=== PATIENT | male | born 1970 | race Caucasian/White ===

== ENCOUNTER 2019-09-16 01:00 | Day surgery (SDC) | payer OTHER, SELFPAY ==
[2019-09-14 13:16] VITALS: BMI 26.1
--- NOTE | 2019-09-16 07:51 | PM.HPGS ---
History of Present Illness History of Present Illness Consent: Risks, benefits, and alternatives have been discussed and questions answered. Patient agrees to proceed with procedure. Chief complaint: Neoplasm Screening, Hx of Polyps Narrative: Camacho Hale is a 49 year old male with a history of adenomatous polyps [facility] Past Medical History Medical History Dupuytrens contracture Gout Hypercholesterolemia Social History Social History Gender identity (if verbalized by the patient): Male Meds Home Medications and Allergies Home Medications Medication Instructions Recorded Confirmed Type atorvastatin 20 mg PO DAILY 08/04/19 09/14/19 History allopurinol 300 mg PO DAILY 09/14/19 09/14/19 History Allergies Allergy/AdvReac Type Severity Reaction Status Date / Time No Known Allergies Allergy Mild Verified 09/14/19 13:14 Exam Resp: Auscultation: clear to auscultation bilaterally Cardio: Rate: regular rate Rhythm: regular rhythm GI: GI Palp: Yes Soft to palpation and No Tenderness to palpation present (GI) Assessment and Plan Assessment and plan (1) Personal history of colonic polyps: Code(s): Z86.010 - Personal history of colonic polyps Status: Acute Assessment and Plan: Colonoscopy with possible biopsy or polypectomy or cautery or injection of substances.
[2019-09-16 08:00] VITALS: BP 121/88; PULSE 89; RESP 16; TEMP 36.2; O2SAT 98
--- NOTE | 2019-09-16 08:01 | WPDANESEPPF ---
Anes - Initial Pre Proc Eval Procedure: Operation Date: 09/16/19 09:00 Proposed Procedures p Screening Colonoscopy - Donis Posadas MD Date/Time: 09/16/19 08:01 Surgeon: Donis Posadas MD Pre Op Diagnosis: Neoplasm Screening, Hx of Polyps Patient Data Age: 49 Gender: M Height: 5 ft 11 in Weight: 85 kg Allergies Allergy/AdvReac Type Severity Reaction Status Date / Time No Known Allergies Allergy Mild Verified 09/16/19 07:57 Home Medications Medication Instructions Recorded Confirmed Type atorvastatin 20 mg PO DAILY 08/04/19 09/14/19 History allopurinol 300 mg PO DAILY 09/14/19 09/14/19 History Patient hx anesthesia problems: none Family hx anesthesia problems: none [facility] Past Medical History Medical History Dupuytrens contracture Gout Hypercholesterolemia Social History Social History (Updated 09/16/19 @ 08:02 by Paul Schreiber MD) Smoking status: Never smoker Alcohol intake: current Gender identity (if verbalized by the patient): Male Anes - Eval Final PreProcedure Day of Procedure 09/16/19 08:01 Patient weight: overweight Heart: regular rate and rhythm Lungs: clear to auscultation Airway: Mallampati scale class II Neurological: alert and oriented Last oral intake: >/= 8 hours ASA classification: II Emergent: no Anesthetic plan: proceed Anesthesia type and monitoring: general GIVS and standard monitoring Informed Consent: The patient's anesthetic plan and its attendant risks and benefits were discussed with the patient/family/POA. Questions were solicited and answers provided to the satisfaction of the patient/family/POA.
[2019-09-16] MEDS: LACTATED RINGERS 1,000 ML 150 ML IV CONT (08:10)
[2019-09-16] MEDS: SIMETHICONE ORAL SUSPENSION 20 MG/0.3 ML 30 ML BOTTLE 0.6 ML IRRIGATION (08:53)
[2019-09-16 08:58] VITALS: BP 116/62; PULSE 78; RESP 19; O2SAT 99
[2019-09-16 09:08] VITALS: BP 99/66; PULSE 74; RESP 16; O2SAT 95
[2019-09-16 09:18] VITALS: BP 109/75; PULSE 64; RESP 15; O2SAT 96
== END 2019-09-16 09:35 | disposition home or self-care (01) ==
PROVIDERS: PCP Internal Medicine; Visit Provider Internal Medicine Gastroenterology
PROC: 0DJD8ZZ Inspection of Lower Intestinal Tract, Via Natural or Artificial Opening Endoscopic (ICD-10-PCS; CPT 45378; principal; 2019-09-16 09:00)
DX: Z12.11 Encounter for screening for malignant neoplasm of colon (principal); K57.30 Diverticulosis of large intestine without perforation or abscess without bleeding; Z86.010 Personal history of colon polyps; E78.00 Pure hypercholesterolemia, unspecified; M10.9 Gout, unspecified
CPT/HCPCS: 45378; J2704; J7120

== ENCOUNTER 2020-03-08 00:35 | Outpatient (CLI) | payer OTHER, SELFPAY ==
[2020-03-08 18:35] LABS: SARS-CoV-2 RNA PCR Negative
== END 2020-03-08 00:36 | disposition home or self-care (01) ==
LOC: ANHCOVIDDT 00:36
PROVIDERS: PCP Internal Medicine; Visit Provider Plastic Surgery
DX: Z01.812 Encounter for preprocedural laboratory examination (principal); Z11.59 Encounter for screening for other viral diseases
CPT/HCPCS: 87635; C9803; U0003

== ENCOUNTER 2020-03-10 01:05 | Day surgery (SDC) | payer OTHER, SELFPAY ==
[2020-02-22 15:08] VITALS: BMI 26.5
--- NOTE | 2020-03-09 18:07 | PM.IMHP ---
H&P: HPI History of Present Illness Date/Time: 03/09/20 18:07 Chief complaint: Dupuytren's Disease Left Thumb & Little Finger Narrative: Camacho Hale is a 49 year old male operated In July of this year for Dupuytren's contracture. He was pleased with the result and has come for surgery on the opposite hand where he has disease involving the thumb and little finger. the possible complications of the this sort of surgery have been reviewed with him again. Most notably they involved nerve injury recurrence wound infection delayed healing and lack of complete correction of the disease deformity. Review of Systems Review of Systems: All systems reviewed & are unremarkable except as noted in HPI and below Constitutional: Constitutional: Reports no additional constitutional complaints Eyes: Eyes: Reports no additional eye complaints ENT: Reports system reviewed and no additional complaints, except as documented Cardiovascular: Cardiovascular: Reports no additional cardiovascular complaints Respiratory: Respiratory: Reports no additional respiratory complaints Gastrointestinal: Gastrointestinal: Reports no additional gastrointestinal complaints Genitourinary: Genitourinary: Reports no additional male genitourinary complaints Musculoskeletal: Musculoskeletal: Reports no additional musculoskeletal complaints Integumentary/Breasts: Skin/Breast: Reports system reviewed and no additional complaints, except as docu Neurologic: Reports system reviewed and no additional complaints, except as documented Psychiatric: Psychiatric: Reports no additional psychiatric complaints PMF[facility] Past Medical History Medical History Dupuytrens contracture Gout Hypercholesterolemia Social History Social History (Updated 09/16/19 @ 08:02 by Paul Schreiber MD) Smoking status: Never smoker Alcohol intake: current Drinks per week: 9 Substance use: never Gender identity (if verbalized by the patient): Male Spiritual care concerns: No Meds Home Medications and Allergies Home Medications Medication Instructions Recorded Confirmed Type atorvastatin 20 mg PO DAILY 08/04/19 02/22/20 History allopurinol 300 mg PO DAILY 09/14/19 02/22/20 History Allergies Allergy/AdvReac Type Severity Reaction Status Date / Time No Known Allergies Allergy Mild Verified 02/22/20 15:12 Exam Const: General: no acute distress HENMT: Other: Unremarkable Eyes: General: appearance normal, both eyes and all related structures Neck: Neck: supple Chest: Other: Clear to auscultation Resp: Effort & Inspection: normal respiratory effort Cardio: Rate: regular rate Rhythm: regular rhythm GI: GI Palp: Yes Soft to palpation : Other: Not examined Skin: General skin exam: normal color Neuro: General: gait normal Speech: normal speech Extrem: Other: Normal skin color. Dupuytren's cords in the 1st web space and in the palmar 5th digit causing severe flexion contractures. 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
[2020-03-10] VITALS (9 sets, daily range): BP systolic 132–157; BP diastolic 87–109; PULSE 58–87; RESP 10–22; TEMP 36.1–36.3; O2SAT 94–100
[2020-03-10] MEDS: LACTATED RINGERS 1,000 ML 30 ML IV CONT ×2 (06:30→11:57)
--- NOTE | 2020-03-10 06:45 | WPDANESEPPF ---
Anes - Initial Pre Proc Eval Procedure: Operation Date: 03/10/20 07:30 Proposed Procedures p Partial Palmar Fasciectomy Left Thumb And Left Little Finger - Luke Phillips MD Date/Time: 03/10/20 06:45 Surgeon: Luke Phillips MD Pre Op Diagnosis: Dupuytren's Disease Left Thumb & Little Finger Patient Data Age: 49 Gender: M Height: 5 ft 11 in Weight: 83.6 kg Last Vital Signs Temp 97.3 F L 03/10/20 06:00 Pulse 76 03/10/20 06:00 Resp 15 03/10/20 06:00 BP 132/87 03/10/20 06:00 Pulse Ox 98 03/10/20 06:00 Allergies Allergy/AdvReac Type Severity Reaction Status Date / Time No Known Allergies Allergy Mild Verified 02/22/20 15:12 Home Medications Medication Instructions Recorded Confirmed Type atorvastatin 20 mg PO DAILY 08/04/19 02/22/20 History allopurinol 300 mg PO DAILY 09/14/19 02/22/20 History Patient hx anesthesia problems: none Family hx anesthesia problems: none PMF[facility] Past Medical History Medical History Dupuytrens contracture Gout Hypercholesterolemia Social History Social History (Updated 09/16/19 @ 08:02 by Paul Schreiber MD) Smoking status: Never smoker Alcohol intake: current Drinks per week: 9 Substance use: never Living arrangements: with family Gender identity (if verbalized by the patient): Male Spiritual care concerns: No Anes - Eval Final PreProcedure Day of Procedure 03/10/20 06:45 Patient weight: overweight Heart: regular rate and rhythm Lungs: clear to auscultation Airway: Mallampati scale class II Neurological: alert and oriented Last oral intake: >/= 8 hours ASA classification: II Emergent: no Anesthetic plan: proceed Anesthesia type and monitoring: general LMA and standard monitoring Informed Consent: The patient's anesthetic plan and its attendant risks and benefits were discussed with the patient/family/POA. Questions were solicited and answers provided to the satisfaction of the patient/family/POA.
--- NOTE | 2020-03-10 07:06 | WPDHPUPDATE1 ---
History and Physical Update Update Date/Time: 03/10/20 07:06 History and Physical has been reviewed, including an updated exam of the patient. There are NO changes in the patient's condition. Risks, benefits, and alternatives have been discussed and questions answered. Patient agrees to proceed with procedure.
[2020-03-10] MEDS: BACITRACIN OINTMENT 15 GM TUBE 1 APPLIC TOPICAL (07:18)
[2020-03-10] MEDS: LIDO 1%/EPINEPHRINE 1:100,000 20 ML VIAL INFILTRATE (07:18)
[2020-03-10] MEDS: ceFAZolin SODIUM 1 GM VIAL IV PUSH (07:38)
--- NOTE | 2020-03-10 10:43 | SUR.OPER ---
EBL:20cc
--- NOTE | 2020-03-10 11:13 | SUR.OPER ---
corrected EBL:30cc
--- NOTE | 2020-03-10 11:29 | PM.OP ---
Procedure Note - Brief Procedure Note - Brief Date of procedure: 03/10/20 Pre-op diagnosis: Dupuytren's Disease Left Thumb & Little Finger Post-op diagnosis: same Procedure performed: Partial palmar fasciectomy left thumb and 5th digit with Z- plasty x4. Anesthesia: GETA Surgeon: Luke Phillips MD It Help Desk Associate: Ginette Estimated blood loss (mL): 25 Tourniquet time (min): 120 Drains: No Packing: No Pathology: none sent Complications: No immediate complications Condition: stable Disposition: PACU
--- NOTE | 2020-03-10 11:38 | PM.PROC ---
Procedure Note - Detailed Date of procedure: 03/10/20 Pre-op diagnosis: Dupuytren's Disease Left Thumb & Little Finger Post-op diagnosis: same Procedure performed: Partial palmar fasciectomy of the left hand including thumb and 5th digit with Z- plasty x5. Description of procedure: The appropriate hand was marked as the patient waited holding area. He was taken to the operating room and placed supine on the operating table. A time-out was held and confirmed. He was given general endotracheal anesthesia. The extremity was prepped and draped in usual fashion. The site was examined and markings placed for incisions on the thumb and radial palm and small finger and ulnar palm. These areas were infiltrated with 1% lidocaine with epinephrine. The tourniquet was inflated to 250 mmHg. Surgery began on the small finger. A volar midline incision was used on the digit and large zigzag incision used on the ulnar side of the hand and back across the palm. Skin flaps were elevated. Dupuytren's tissue was identified and trimmed out. Both neurovascular bundles were identified. There was significant displacement of the digital neurovascular bundles in the area of the proximal interphalangeal joint and these were carefully followed and kept insight. On the thumb there was a radial paramedian palmar incision that extended onto the thenar eminence. An incision was also made through the webspace. The neurovascular bundles were carefully identified and traced throughout the procedure. All contracted tissue was removed. Closure was accomplished with conversion of linear incisions across the flexion creases to Z-plasties. The patient was given 2 g of Ancef at the start of the case. the tourniquet was inflated for approximately 90 minutes the 1st time. It was released for 15 minutes and was up for another 30 minutes or so. No additional local anesthetic was utilized. The patient. There were no complications. Estimated blood loss approximately 25 milliliter Surgeon: Luke Phillips MD
--- NOTE | 2020-03-10 12:13 | SUR.PHASEI ---
DR JORDAN AWARE OF BPS 140S OVER 90-100
== END 2020-03-10 13:20 | disposition home or self-care (01) ==
PROVIDERS: PCP Internal Medicine; Visit Provider Plastic Surgery
PROC: (CPT 26045; principal; 2020-03-10 07:30)
DX: M72.0 Palmar fascial fibromatosis [Dupuytren] (principal); E78.00 Pure hypercholesterolemia, unspecified; M10.9 Gout, unspecified
CPT/HCPCS: 26123; 26125; A9270; J0690; J1100; J2250; J2405; J2704; J3010; J7120